=== PATIENT | male | born 2000 | race Caucasian/White ===

== ENCOUNTER → 2021-06-18 | Emergency (ER) | payer OTHER ==
[~2021-06-18] MED LIST: BENTYL 20MG TAB20 MG PO; FLONASE 0.05% N16 GM; IBUPROFEN600 MG PO; ZITHROMAX250 MG PO; ZOFRAN ODT 4 MG4 MG PO; ZYRTEC10 M3 PO
[2021-06-18 12:54] LABS: HEMOGLOBIN 16.5 gm/dl (14.0-17.5); RED BLOOD COUNT 5.41 M/UL (4.20-5.50); WHITE BLOOD COUNT 6.5 K/UL (4.5-11.0)
[2021-06-18 13:14] LABS: BUN/CREATININE RATIO 13 (0-10)
== END | disposition home or self-care (01) ==
LOC: ER1 12:06
PROVIDERS: Physician Assistant Medical
DX: K62.5 Hemorrhage of anus and rectum (principal)
CPT/HCPCS: 80053; 81001; 82270; 85025; 85610; 99285; Q9967